=== PATIENT | female | born 1965 ===

== ENCOUNTER 2020-08-01 09:13 | Outpatient (REF) | payer OTHER, SELFPAY | END 2020-08-01 09:14 | disposition home or self-care (01) | LOC: HO.LAB 09:13 | PROVIDERS: Visit Provider Internal Medicine | DX: Z20.828 Contact with and (suspected) exposure to other viral communicable diseases (principal); M89.49 Other hypertrophic osteoarthropathy, multiple sites; M17.11 Unilateral primary osteoarthritis, right knee; M17.12 Unilateral primary osteoarthritis, left knee | CPT/HCPCS: 99212; C9803; U0003 ==

== ENCOUNTER 2020-08-21 07:47 | Outpatient (REF) | payer OTHER, SELFPAY | END 2020-08-21 07:48 | disposition home or self-care (01) | LOC: HO.LAB 07:47 | PROVIDERS: PCP Internal Medicine; Visit Provider Internal Medicine | DX: Z20.828 Contact with and (suspected) exposure to other viral communicable diseases (principal) | CPT/HCPCS: C9803; U0003 ==

== ENCOUNTER 2020-09-11 08:06 | Outpatient (REF) | payer OTHER, SELFPAY ==
--- NOTE | 2020-09-11 08:10 | MM_ITS ---
EXAMINATION: BONE DENSITOMETRY CLINICAL INDICATION: Age-related osteoporosis without current pathological fracture. COMPARISON: Baseline BD dated 04/20/2018. TECHNIQUE: Using a [employer] Software DXA System (software version: 13.1) manufactured by [employer], dual-energy x-ray absorptiometry was performed of the lumbar spine and left hip. The images are of good technical quality. Summary results are attached. FINDINGS: AP SPINE L1-L4: Current: BMD 0.804 g/cm2, Z-score -2.1, T-score -3.1, osteoporosis, 7.9% decrease from baseline (<5% change is not significant). Baseline: BMD 0.873 g/cm2. LEFT FEMUR, NECK: Current: BMD 0.665 g/cm2, Z-score -1.5, T-score -2.7, osteoporosis. Baseline: BMD 0.653 g/cm2. LEFT FEMUR, TOTAL: Current: BMD 0.793 g/cm2, Z-score -0.9, T-score -1.7, osteopenia, 0.6% decrease from baseline (<5% change is not significant). Baseline: BMD 0.798 g/cm2. IDENTIFIED RISK FACTORS: History of adult fracture. Rheumatoid arthritis. Osteoporosis. Secondary osteoporosis (early menopause). HISTORY OF FRACTURE: Elbow. Shoulder, trauma related. MEDICATIONS: Calcium supplement and/or multivitamin. MM/XR DEXA axial skeleton IMPRESSION: 1. DIAGNOSIS: Severe osteoporosis based on the lowest T-score value of -3.1 in the lumbar spine applying World Health Organization criteria. 2. 10-YEAR FRACTURE RISK PREDICTION, FRAX: Major osteoporotic fracture (clinical spine, forearm, hip or shoulder) 24.6%. Hip fracture 6.3%. 3. Treatment Recommendations: NOF guidelines recommend consideration for treatment in postmenopausal women and men age 50 and older presenting with the following: -A hip or vertebral (clinical or morphometric) fracture. -T-score less than or equal to -2.5 at the femoral neck or spine after appropriate evaluation to exclude secondary causes. -Low bone mass at the hip or spine and a 10-year fracture probability by FRAX of greater than or equal to 3% for hip fracture or greater than or equal to 20% for major osteoporotic fracture based on the [place] adapted WHO algorithm. 4. Other Recommendations: All treatment decisions require clinical judgment and consideration of individual patient factors, including patient preferences, comorbidities, previous drug use, risk factors not captured in the FRAX model (e.g. frailty, falls, vitamin D deficiency, increased bone turnover, interval significant decline in bone density) and possible under or overestimation of fracture risk by FRAX. Additional medical evaluation for secondary cause of low bone mineral density may be appropriate. FUTURE SCAN RECOMMENDATION: People with diagnosed cases of osteoporosis or at high risk for fracture should have regular bone mineral density tests. For patients eligible for Medicare, routine testing is allowed once every 2 years. The testing frequency can be increased to one year for patients who have rapidly progressing disease, those who are receiving or discontinuing medical therapy to restore bone mass, or have additional risk factors.
--- NOTE | 2020-09-11 08:10 | MM_ITS ---
EXAMINATION: MM SCREENING DIGITAL BREAST TOMOSYNTHESIS, BILATERAL CLINICAL INFORMATION: Screening. Asymptomatic. The lifetime risk of breast cancer based on the Tyrer-Cuzick Model is 6%. COMPARISON: Outside mammography: 11/12/2016, 11/23/2013 ([facility]) TECHNIQUE: Digital breast tomosynthesis is performed in both the craniocaudal and mediolateral oblique views along with computer-aided detection (CAD). Synthesized 2D images are generated from the tomosynthesis. FINDINGS: There are scattered areas of fibroglandular density (ACR BI-RADS breast composition Category b). Breast tissue composition borders on heterogeneously dense. The parenchymal pattern is similar to prior exams. There is no significant mass or developing density or architectural abnormality. No abnormal calcifications. Low right axillary tail nodes present on MLO view. The skin contours are smooth. MM/MM tomosynthesis screening BI IMPRESSION: No mammographic evidence of malignancy. ASSESSMENT: BI-RADS 2: Benign RECOMMENDATION: Routine annual mammography screening. This patient's information was entered into a reminder system with a target due date for their next mammogram.
== END 2020-09-11 08:07 | disposition home or self-care (01) ==
LOC: HO.MAMMO 08:06
PROVIDERS: PCP Internal Medicine; Visit Provider Internal Medicine
DX: Z12.31 Encounter for screening mammogram for malignant neoplasm of breast (principal); M81.0 Age-related osteoporosis without current pathological fracture
CPT/HCPCS: 77063; 77067; 77080

== ENCOUNTER 2021-02-19 08:16 | Outpatient (REF) | payer OTHER, SELFPAY | END 2021-02-19 08:17 | disposition home or self-care (01) | LOC: HO.HOSX 08:16 | PROVIDERS: Visit Provider Physician Assistant | DX: Z13.89 Encounter for screening for other disorder (principal) ==

== ENCOUNTER 2021-07-05 09:28 | Outpatient (REF) | payer OTHER, SELFPAY ==
[2021-07-05 11:35] LABS: Baso%MD 0.4 %; Eos%MD 2.8 %; Hematocrit 36.5 % (37-47); IG%MD 0.4 %; Lymph%MD 23.1 %; Mean Corpuscular HGB Conc 32.9 g/dl (31.0-35.0); Mean Corpuscular Hemoglobin 27.5 pg (27.0-33.0); Mean Corpuscular Volume 83.5 fL (80-98); Mean Platelet Volume 10.3 fL (9.4-12.3); Mono%MD 6.1 %; Neut%MD 67.2 %; Platelet Count 309 X10*3/uL (160-400); Red Blood Count 4.37 X10*6/uL (4.20-5.50); Red Cell Distribution Width 13.3 % (11.0-16.0); White Blood Count 7.5 X10*3/uL (4.8-10.8)
[2021-07-05 11:46] LABS: Alanine Aminotransferase 15 U/L (0-31); Albumin Level 4.4 g/dL (3.5-5.0); Alkaline Phosphatase 82 U/L (39-117); Anion Gap 10 (12-20); Aspartate Amino Transferase 15 U/L (5-31); Bilirubin Total 0.5 mg/dL (0.0-1.0); Blood Urea Nitrogen 15 mg/dL (9-16); Calcium 9.6 mg/dL (8.4-10.2); Carbon Dioxide 28 mmol/L (22-29); Chloride 105 mmol/L (96-108); Cholesterol 229 mg/dL; Estimated Glomerular Filt Rate > 60; Glucose Fasting 100 mg/dL (60-99); HDL Cholesterol 68 mg/dL; LDL Cholesterol Calculated 139 mg/dl; Potassium 4.2 mmol/L (3.3-5.1); Sodium 139 mmol/L (135-145); Total Protein 6.7 g/dL (6.5-8.0); Triglycerides 113 mg/dL
[2021-07-05 11:59] LABS: Estimated Average Glucose 126 mg/dL
[2021-07-05 12:02] LABS: Band Neutrophils Percent 1 % (3-5); Eosinophils Absolute Manual 0.2 X10*3/UL (0.0-0.8); Eosinophils Percent Manual 3 % (0-4); Lymphocytes Absolute Manual 1.1 X10*3/uL (0.6-4.8); Lymphocytes Percent Manual 14 % (20-40); Monocytes Absolute Manual 0.5 X10*3/uL (0.0-1.2); Monocytes Percent Manual 6 % (2-11); Neutrophils Absolute Manual 5.8 X10*3/uL (2.2-7.9); Neutrophils Percent Manual 76 % (45-73)
[2021-07-05 12:03] LABS: RBC Morphology NOTED
[2021-07-05 12:04] LABS: Acanthocytes 1+ (0-2) /OIF; Ovalocytes 1+ (5-14) /OIF; Platelet Estimate NORMAL (NORMAL); Platelet Morphology Comment NORMAL
[2021-07-05 12:22] LABS: Creatinine Urine 86.85 mg/dL; Microalbum/Creatinine Ratio Ur 28.7 ug/mg cr; TSH reflex Free T4 1.12 uIU/mL (0.32-4.0)
== END 2021-07-05 09:29 | disposition home or self-care (01) ==
LOC: HO.HMGCLDS 09:28
PROVIDERS: PCP Internal Medicine; Visit Provider Internal Medicine
DX: E78.5 Hyperlipidemia, unspecified (principal); I10 Essential (primary) hypertension; M81.0 Age-related osteoporosis without current pathological fracture; M54.2 Cervicalgia
CPT/HCPCS: 36415; 80053; 80061; 82043; 82306; 83036; 84443; 85007; 85027

== ENCOUNTER 2022-03-13 13:47 | Outpatient (REF) | payer OTHER, SELFPAY ==
--- NOTE | ~2022-03-13 | US_ITS ---
EXAMINATION: US VENOUS ULTRASOUND WITH DOPPLER LOWER EXTREMITY, RIGHT CLINICAL INFORMATION: Right lower extremity pain COMPARISON: None TECHNIQUE: Ultrasound of the deep veins is performed from the hip to the calf with compression sonography and color and pulse Doppler assessment. Spectral analysis with color-flow imaging is performed. FINDINGS: There is normal venous compression and respiratory variation and augmented flow. The visualized common femoral vein, superficial femoral vein, profunda femoral vein, popliteal vein, and the trifurcation region shows no evidence of deep venous thrombosis. There is no significant popliteal fossa cyst. The contralateral left femoral vein is normal. If the patient's symptoms persist, followup ultrasound in 5 days 7 days might be of value to exclude proximal propagation from a non-visualized calf vein. US/US venous duplex LE RT IMPRESSION: No DVT demonstrated in the right lower extremity.
== END 2022-03-13 13:48 | disposition home or self-care (01) ==
LOC: HO.HMGCX 13:47
PROVIDERS: Visit Provider Internal Medicine
DX: M79.604 Pain in right leg (principal)
CPT/HCPCS: 93971

== ENCOUNTER 2022-06-09 07:44 | Outpatient (REF) | payer OTHER, SELFPAY ==
--- NOTE | ~2022-06-09 | XR_ITS ---
EXAMINATION: XR ANKLE, RIGHT CLINICAL INFORMATION: M25.579 - Pain in unspecified ankle and joints of unspecified foot COMPARISON: None TECHNIQUE: AP, lateral, and mortise views of the right ankle. FINDINGS: The bones and soft tissues are normal. No fracture. Alignment is anatomic. Joint spaces are maintained. No joint effusion. XR/XR ankle RT min 3V IMPRESSION: Normal right ankle.
== END 2022-06-09 07:45 | disposition home or self-care (01) ==
LOC: HO.HOSX 07:44
PROVIDERS: Visit Provider Physician Assistant
DX: M25.571 Pain in right ankle and joints of right foot (principal); M79.604 Pain in right leg
CPT/HCPCS: 73610; 99202

== ENCOUNTER 2022-06-25 07:25 | Outpatient (REF) | payer OTHER, SELFPAY ==
--- NOTE | ~2022-06-25 | MR_ITS ---
EXAMINATION: MRI OF THE RIGHT LOWER EXTREMITY WITHOUT CONTRAST CLINICAL INFORMATION: Pain in right leg COMPARISON: None TECHNIQUE: MRI of the right lower leg performed without contrast high-field MRI scanner. Skin marker placed in the airway patient reports greatest discomfort. FINDINGS: Subcutaneous soft tissues: There is mild subcutaneous edema manifested by feathery-appearing fluid signal stranding abutting the anterior medial cortex of the middle to distal third portion of the tibia. Possible subtle edema in the underlying bone. No fracture line. Muscles Bone: Question subtle marrow edema deep to the endosteal bone along the anterior medial aspect of the mid to distal tibia. No fracture line. Neurovascular structures: Normal. MR/MR lower leg RT wo con IMPRESSION: Suspect mild stress reaction in the distal right tibia. No discrete fracture line.
== END 2022-06-25 07:26 | disposition home or self-care (01) ==
LOC: HO.MRI 07:25
PROVIDERS: Visit Provider Physician Assistant
DX: M79.604 Pain in right leg (principal)
CPT/HCPCS: 73718

== ENCOUNTER 2022-11-10 07:58 | Outpatient (REF) | payer OTHER, SELFPAY ==
[2022-11-10 11:57] LABS: MANUAL DIFF FLAG NO
[2022-11-10 12:11] LABS: Basophils Absolute Auto 0.1 X10*3/uL (0.0-0.2); Basophils Percent Auto 0.6 % (0-2); Eosinophils Absolute Auto 0.4 X10*3/uL (0.0-0.4); Eosinophils Percent Auto 4.3 % (0-4); Hematocrit 39.1 % (37.0-47.0); Hemoglobin 12.5 g/dl (12.0-16.0); Imm Gran Abs Auto 0.03 X10*3/uL (0.00-0.03); Imm Gran Pct Auto 0.4 % (0.0-0.4); Lymphocytes Absolute Auto 2.7 X10*3/uL (1.2-4.9); Lymphocytes Percent Auto 32.2 % (20-40); Mean Corpuscular Hemoglobin 26.9 pg (27.0-33.0); Mean Corpuscular Volume 84.3 fL (80.0-98.0); Mean Platelet Volume 10.2 fL (9.4-12.3); Monocytes Absolute Auto 0.5 X10*3/uL (0.1-1.2); Neutrophils Absolute Auto 4.8 x10*3/uL (2.0-8.3); Neutrophils Percent Auto 56.5 % (45-73); Platelet Count 305 X10*3/uL (160-400); Red Blood Count 4.64 X10*6/uL (4.20-5.50); Red Cell Distribution Width 13.4 % (11.0-16.0); White Blood Count 8.4 X10*3/uL (4.8-10.8)
[2022-11-10 12:28] LABS: Alanine Aminotransferase 14 U/L (0-31); Albumin Level 4.2 g/dL (3.5-5.0); Alkaline Phosphatase 62 U/L (39-117); Anion Gap 12 (12-20); Aspartate Amino Transferase 12 U/L (5-31); Bilirubin Total 0.3 mg/dL (0.0-1.0); Blood Urea Nitrogen 17 mg/dL (9-16); Calcium 8.9 mg/dL (8.4-10.2); Carbon Dioxide 26 mmol/L (22-29); Chloride 108 mmol/L (96-108); Estimated Glomerular Filt Rate > 60; Glucose Random 114 mg/dL (60-115); Potassium 3.8 mmol/L (3.3-5.1); Sodium 142 mmol/L (135-145); Total Protein 6.7 g/dL (6.5-8.0)
== END 2022-11-10 07:59 | disposition home or self-care (01) ==
LOC: HO.HMGCLDS 07:58
PROVIDERS: PCP Internal Medicine; Visit Provider Internal Medicine
DX: M79.604 Pain in right leg (principal)
CPT/HCPCS: 36415; 80053; 85025

== ENCOUNTER 2023-05-26 08:29 | Outpatient (REF) | payer OTHER, SELFPAY ==
--- NOTE | ~2023-05-26 | XR_ITS ---
EXAMINATION: XR KNEES AP STANDING, BILATERAL XR KNEE, 2 VIEWS, RIGHT CLINICAL INFORMATION: Right knee pain. COMPARISON: MRI dated 06/25/2022. Prior radiographs from 10/13/2019. TECHNIQUE: Standing AP view of both knees and lateral and sunrise views of the right knee. FINDINGS: LEFT KNEE: There is medial compartment joint space narrowing with small marginal osteophytes. This is more pronounced as compared to 2020. Small lateral compartment osteophytes. No fracture or malalignment. Soft tissues are unremarkable. RIGHT KNEE: Medial compartment joint space narrowing is again noted with small marginal osteophytes. Small marginal osteophytes are also present in the lateral and patellofemoral compartments. This appearance is slightly more pronounced as compared to 2020. No joint effusion. No osseous loose bodies. No fracture or malalignment. XR/XR knee RT 2V IMPRESSION: Slight progression of the osteoarthritis in both knees as compared to prior. Osteoarthritis remains relatively mild and more pronounced in the medial compartments bilaterally and in the right knee patellofemoral compartment.
--- NOTE | ~2023-05-26 | XR_ITS ---
EXAMINATION: XR KNEES AP STANDING, BILATERAL XR KNEE, 2 VIEWS, RIGHT CLINICAL INFORMATION: Right knee pain. COMPARISON: MRI dated 06/25/2022. Prior radiographs from 10/13/2019. TECHNIQUE: Standing AP view of both knees and lateral and sunrise views of the right knee. FINDINGS: LEFT KNEE: There is medial compartment joint space narrowing with small marginal osteophytes. This is more pronounced as compared to 2020. Small lateral compartment osteophytes. No fracture or malalignment. Soft tissues are unremarkable. RIGHT KNEE: Medial compartment joint space narrowing is again noted with small marginal osteophytes. Small marginal osteophytes are also present in the lateral and patellofemoral compartments. This appearance is slightly more pronounced as compared to 2020. No joint effusion. No osseous loose bodies. No fracture or malalignment. XR/XR knee standing BI IMPRESSION: Slight progression of the osteoarthritis in both knees as compared to prior. Osteoarthritis remains relatively mild and more pronounced in the medial compartments bilaterally and in the right knee patellofemoral compartment.
== END 2023-05-26 08:30 | disposition home or self-care (01) ==
LOC: HO.HOSX 08:29
PROVIDERS: Visit Provider Physician Assistant
DX: M17.11 Unilateral primary osteoarthritis, right knee (principal)
CPT/HCPCS: 20610; 73560; 73565; 99212; J1040

== ENCOUNTER 2023-05-26 10:32 | Outpatient (AMB) | payer SELFPAY ==
--- NOTE | 2023-05-26 10:49 | MHC.OFFVIS ---
Intake Vital Signs 05/26/23 10:50 Height 5 ft Weight 135 lb BMI 26.4 Intake Visit Reasons: OV- Right knee pain Intake Note: Donna is a 57 year old female who presents today for a follow up for her right knee pain. Patient reports having pain when over working her knee when walking on it all day. She states that her knee gets stiff the next day. Patient states taking Tylenol for arthritis and it gives her relief. Allergies SEASONAL Allergy (Intermediate, Uncoded 01/07/23 13:33) Itchy Eyes HPI OV- Right knee pain HPI Details 57-year-old female who presents in the office today for an evaluation of right knee pain. The patient reports having pain when over working the knee and when ambulating all day. She claims to have stiffness in the knee at night. She confirms edema in the right knee. She states she has been taking Tylenol for arthritis, with some relief. She reports her job is on her feet and the pain in her knee is causing her increased pain and difficult to work on. [facility], [facility] Medical History (Updated 02/25/23 @ 07:22 by Martir Mcmillan MD) Supraclavicular fossa fullness Anxiety Primary osteoarthritis of left knee Primary osteoarthritis of right knee Osteoporosis Asthma Hyperlipemia HTN (hypertension) Fibromyalgia Arthralgia Surgical History Hx of tubal ligation History of shoulder surgery Hx of appendectomy Family History Father CVD (cardiovascular disease) HTN (hypertension) Diabetes Mother HTN (hypertension) Diabetes Son No problems noted. Daughter No problems noted. 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 No ecchymosis, erythema, or joint effusion. No tenderness to palpation to the lateral joint line. Tenderness to palpation to the medial joint line. Full knee extension and flexion. Crepitus felt with ROM. NVI. Office Procedures Joint Injection/Drain Joint Injection/Drain Primary Site: right knee Prep: site was prepped using aseptic technique, ethochloride spray was applied and injection warnings given Injected: 80 mg of, DepoMedrol, with 8 mL of (2% plain lido ) and in the joint Approach Used: anterolateral Procedure: The patient tolerated the procedure well, but had some pain with the injection and there was some relief with the local anesthesia Coding 99121 - Large joint Procedure code (CPT) selection complete Results Reviewed Results Reviewed: 05/26/23 11:02 Lidocaine HCl 2 % MPF [Xylocaine 2 % MPF] 5 ml .ROUTE .STK-MED ONE methylPREDNISolone acetate [DEPO-MedroL] 80 mg .ROUTE .STK-MED ONE Assessment & Plan Assessment & Plan (1) Primary osteoarthritis of right knee: Code(s): M17.11 - Unilateral primary osteoarthritis, right knee Plan Ms. Abdalla is a 57-year-old female who presents in the office today for an evaluation of right knee pain. The patient reports having pain when over working the knee and when ambulating all day. She claims to have stiffness in the knee at night. She confirms edema in the right knee. She states she has been taking Tylenol for arthritis, with some relief. She reports her job is on her feet and the pain in her knee is causing her increased pain and difficult to work on. The patient was offered a cortisone injection in the right knee with 80 mg of DepoMedrol. The patient was explained the risk, benefits, and alternatives to receiving this injection. After receiving consent for the injection, the patient had the procedure done while in office today. The patient tolerated the procedure well with no complications. Follow up will be PRN, or sooner if needed. X-rays of the right knee which were obtained while in the office today and were reviewed by me, Liseth Eckert PA-C, revealed no evidence of acute fracture or dislocation. Osteoarthritis observed. Orders: Orders XR knee standing BI Today M25.569 - Pain in unspecified knee XR knee RT 2V Today M25.569 - Pain in unspecified knee Patient Instructions: Scribed for Liseth Eckert PA-C by Conchis Ward medical receptionist assistant, on 05/26/2023 at 10:41 am, EST. Coding Level of Care Code Est Pt Level 3 (68735) Diagnoses Primary osteoarthritis of right knee M17.11 CPT Codes Coding - 23397 Large joint: 50433 - Large joint ([id number])
[2023-05-26 10:50] VITALS: BMI 26.4
== END 2023-05-26 11:17 | disposition home or self-care (01) ==
PROVIDERS: PCP Internal Medicine; Visit Provider Physician Assistant
DX: M17.11 Unilateral primary osteoarthritis, right knee (principal)
CPT/HCPCS: 20610; 99213

== ENCOUNTER 2023-06-29 09:06 | Outpatient (AMB) | payer SELFPAY ==
[2023-06-29 10:35] VITALS: BP 122/78; PULSE 87; O2SAT 97; BMI 26.9
--- NOTE | 2023-06-29 10:35 | AM.OFFWIN_ITS ---
Intake Vital Signs 06/29/23 10:35 Height 5 ft Weight 138 lb BMI 26.9 BP 122/78 Blood Pressure Location Lt brachial Position Sitting Pulse 87 Pulse Source Pulse Oximeter Pulse Oximetry (%) 97 Oxygen Delivery Method Room Air Intake Visit Reasons: EP LT leg pain (lobby) Intake Note: patient is here today for LT leg pain Patient Tobacco Use Status: Never used Tobacco Allergies SEASONAL Allergy (Intermediate, Uncoded 06/29/23 11:03) Itchy Eyes Medication List - Last Reconciled 06/29/23 by Winston Carmona MD albuterol sulfate 90 mcg/actuation 2 puffs inhalation Q6H PRN amlodipine 5 mg PO DAILY denosumab (Prolia) 60 mg subcut [id number] duloxetine (Cymbalta) one cap in am, 2 caps in pm orally 2 times a day; fluticasone propion-salmeterol 113-14 mcg/actuation 1 inh inhalation BID fluticasone propionate 113 mcg/actuation 1 inh inhalation BID meloxicam 15 mg PO DAILY montelukast 10 mg PO DAILY omeprazole 40 mg PO DAILY simvastatin 20 mg PO DAILY Do you need a note to return to daycare/school/sports/work: No HPI EP LT leg pain (lobby) HPI Details 57-year-old female presents to the health system for a sick visit. Patient is reporting pain over the left leg for the past week. Does not recall any fall or injury. She reports that for the past few days she has been walking with a limp as there is pain in the left leg when she bears weight. [facility] Medical History Supraclavicular fossa fullness Anxiety Primary osteoarthritis of left knee Primary osteoarthritis of right knee Osteoporosis Asthma Hyperlipemia HTN (hypertension) Fibromyalgia Arthralgia Surgical History Hx of tubal ligation History of shoulder surgery Hx of appendectomy Family History Father CVD (cardiovascular disease) HTN (hypertension) Diabetes Mother HTN (hypertension) Diabetes Son No problems noted. Daughter No problems noted. 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 No visible bruising. Assessment & Plan Assessment & Plan (1) Left leg pain: Code(s): M79.605 - Pain in left leg Orders: Orders XR tibia fibula LT 2V Today S80.10XA - Contusion of unspecified lower leg, initial encounter Patient Instructions: X-ray images were personally reviewed by me. No fractures seen. Meloxicam called in. Coding Level of Care Code Est Pt Level 4 (50807) Diagnoses Left leg pain M79.605
== END 2023-06-29 11:29 | disposition home or self-care (01) ==
PROVIDERS: PCP Internal Medicine; Visit Provider Internal Medicine
DX: M79.605 Pain in left leg (principal)
CPT/HCPCS: 99214

== ENCOUNTER 2023-06-29 11:00 | Outpatient (REF) | payer OTHER, SELFPAY ==
--- NOTE | ~2023-06-29 | XR_ITS ---
EXAMINATION: XR TIBIA AND FIBULA, LEFT CLINICAL INFORMATION: Contusion. COMPARISON: Right lateral knee 05/26/2023. TECHNIQUE: AP and lateral views of the left tibia and fibula were obtained. FINDINGS: No significant soft tissue swelling. No radiopaque foreign body. No fracture. Minimal degenerative changes in the knee. XR/XR tibia fibula LT 2V IMPRESSION: No fracture.
== END 2023-06-29 11:01 | disposition home or self-care (01) ==
LOC: HO.HMGCX 11:00
PROVIDERS: PCP Internal Medicine; Visit Provider Internal Medicine
DX: S80.12XA Contusion of left lower leg, initial encounter (principal)
CPT/HCPCS: 73590

== ENCOUNTER 2023-10-09 11:31 | Outpatient (AMB) | payer OTHER, SELFPAY ==
--- NOTE | 2023-10-09 11:38 | MHC.OFFVIS ---
Intake Vital Signs 10/09/23 11:39 Height 5 ft Weight 138 lb BMI 26.9 Intake Visit Reasons: OV - right knee OA, last inj 05/26/23 Intake Note: Donna is a 58 year old female who presents today for a follow up of her right knee OA. Last injection was done 05/26/23. Patient reports that this injection was helpful. She is interested in exploring other treatment options but also interested in repeat injection today. Allergies SEASONAL Allergy (Intermediate, Uncoded 06/29/23 11:03) Itchy Eyes HPI OV - right knee OA, last inj 05/26/23 HPI Details Donna is a 58 year old woman who returns to discuss her right knee OA. She was last seen, and injected, on 05/26/23, with good relief. She would like to discuss alternative treatment options, but she is open to a repeat injection today. [facility] Medical History Supraclavicular fossa fullness Anxiety Primary osteoarthritis of left knee Primary osteoarthritis of right knee Osteoporosis Asthma Hyperlipemia HTN (hypertension) Fibromyalgia Arthralgia Surgical History Hx of tubal ligation History of shoulder surgery Hx of appendectomy Family History Father CVD (cardiovascular disease) HTN (hypertension) Diabetes Mother HTN (hypertension) Diabetes Son No problems noted. Daughter No problems noted. 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 Cognitive needs: No Hearing needs: No Vision needs: Yes Review of Systems Const All systems reviewed & are unremarkable except as noted in HPI and below Physical Exam Vital Signs: BMI result Body Mass Index 26.9 Const General: no acute distress, alert and awake Orientation/consciousness: patient oriented x3 HEENT Head: Yes normocephalic and Yes atraumatic Eyes EOM: EOMs intact bilaterally Resp Effort & Inspection: normal respiratory effort and able to speak in complete sentences Cardio Jugular venous distension: no JVD Skin General skin exam: turgor normal Rashes: no rashes Neuro General: patient oriented x3 Extrem Other: mild medial compartment TTP Walking normally with no effusion Psych Appearance: grossly normal Affect: normal affect Attitude: cooperative Results Reviewed Results Reviewed: I personally reviewed relevant radiographs. Moderate medial compartment OA Assessment & Plan Assessment & Plan (1) Primary osteoarthritis of right knee: Code(s): M17.11 - Unilateral primary osteoarthritis, right knee Plan: Doing well May f/u for injection if pain returns No intervention warranted today Plan Prepared for Tommy Alexandra MD by Dio Palafox, medical assistant dermatology, on 10/09/23 at 11:44 AM, EST. Coding Level of Care Code Est Pt Level 3 (00205) Diagnoses Primary osteoarthritis of right knee M17.11
[2023-10-09 11:39] VITALS: BMI 26.9
== END 2023-10-09 11:48 | disposition home or self-care (01) ==
PROVIDERS: PCP Internal Medicine; Visit Provider Orthopaedic Surgery
DX: M17.11 Unilateral primary osteoarthritis, right knee (principal)
CPT/HCPCS: 99213

== ENCOUNTER → 2023-10-09 11:31 | Outpatient (BNVA) | payer OTHER, SELFPAY | PROVIDERS: PCP Internal Medicine; Visit Provider Orthopaedic Surgery | DX: M17.11 Unilateral primary osteoarthritis, right knee (principal) | CPT/HCPCS: 99212 ==

== ENCOUNTER → 2024-06-17 12:33 | Outpatient (BNVA) | payer OTHER, SELFPAY | PROVIDERS: PCP Internal Medicine; Visit Provider Internal Medicine ==

== ENCOUNTER 2024-11-29 09:09 | Outpatient (REF) | payer OTHER, SELFPAY ==
[2024-11-29 11:16] LABS: Adenovirus PCR Not Detected (Not Detect.); Bordetella parapertussis PCR Not Detected (Not Detect.); Bordetella pertussis PCR Not Detected (Not Detect.); Chlamydia pneumoniae PCR Not Detected (Not Detect.); Coronavirus 229E PCR Not Detected (Not Detect.); Coronavirus HKU1 PCR Not Detected (Not Detect.); Coronavirus NL63 PCR Not Detected (Not Detect.); Coronavirus OC43 PCR Not Detected (Not Detect.); Human metapneumovirus PCR Not Detected (Not Detect.); Influenza A PCR Not Detected (Not Detect.); Influenza B PCR Not Detected (Not Detect.); Mycoplasma pneumoniae PCR Not Detected (Not Detect.); Parainfluenza 1 PCR Not Detected (Not Detect.); Parainfluenza 2 PCR Not Detected (Not Detect.); Parainfluenza 3 PCR Not Detected (Not Detect.); Parainfluenza 4 PCR Not Detected (Not Detect.); RSV PCR Not Detected (Not Detect.); Rhino/Enterovirus PCR Not Detected (Not Detect.)
[2024-11-29 13:17] LABS: SARS-CoV-2 PCR Not Detected (Not Detect.)
== END 2024-11-29 09:10 | disposition home or self-care (01) ==
LOC: HO.LAB 09:09
PROVIDERS: Physician Assistant; PCP Internal Medicine
DX: J06.9 Acute upper respiratory infection, unspecified (principal); J01.90 Acute sinusitis, unspecified; B97.89 Other viral agents as the cause of diseases classified elsewhere
CPT/HCPCS: 87633; 99212

== ENCOUNTER 2024-11-29 09:09 | Outpatient (AMB) | payer OTHER, SELFPAY ==
[2024-11-29 09:12] VITALS: BP 130/82; PULSE 73; TEMP 36.5; O2SAT 97; BMI 26.8
--- NOTE | 2024-11-29 09:12 | AM.OFFWIN_ITS ---
Intake Vital Signs 11/29/24 09:12 Height 5 ft Weight 137 lb BMI 26.8 BP 130/82 Blood Pressure Location Rt brachial Position Sitting Pulse 73 Pulse Source Pulse Oximeter Temp 97.7 F Temp Source Oral Pulse Oximetry (%) 97 Oxygen Delivery Method Room Air Intake Visit Reasons: EP Sinus congestion Intake Note: Pt presents to the office today for c/o sinus congestion,sinus pressure,headache, and runny nose x1 week. Patient Tobacco Use Status: Never used Tobacco Allergies SEASONAL Allergy (Intermediate, Uncoded 11/29/24 09:15) Itchy Eyes HPI HPI Comments History of Present Illness Details History - The patient is a 59-year-old female pr esenting with ear pain, headaches and sinus pain x 1week. - The pain is described as an intermitte nt shooting sensation, not constant or persistent. - Denies fever, respiratory, or gastroin testinal symptoms. - Discussed familial patterns of similar symptoms, suggesting a familial trait. - The patient has used prednisone in the past for similar symptoms. - Taking allergy pill daily with no reli ef Physical Exam General: Cooperative, healthy appearing, comfortable and no acute distress Orientation/consciousness: Patient oriented x3 Limitations: No limitations Head: Normal to inspection Ears: Hearing grossly normal bilaterally, external ears normal and TM's with fluid bilat Nose: Normal external nose present, Normal nares present and No nasal discharge present Face and sinus: Normal facial exam and Yes sinuses nontender Mouth: Normal oral and palatal mucosa present and moist mucous membranes Throat: Yes tonsils normal, Yes uvula midline. Posterior oropharynx erythema Eyes: Appearance normal, both eyes and all related structures Neck: Normal visual inspection Respiratory: Clear to auscultation bilaterally. Normal respiratory effort, able to speak in complete sentences, no respiratory distress, not tachypneic, no tripod positioning and no use of accessory muscles Cardiovascular: Regular rate and rhythm. Normal S1 and S2 Skin: No rashes or lesions noted Neuro: Patient oriented x3 Extremities: Normal to inspection and Yes no clubbing, cyanosis or edema PFSH Medical History Supraclavicular fossa fullness Anxiety Primary osteoarthritis of left knee Primary osteoarthritis of right knee Osteoporosis Asthma Hyperlipemia HTN (hypertension) Fibromyalgia Arthralgia Surgical History Hx of tubal ligation History of shoulder surgery Hx of appendectomy Family History Father CVD (cardiovascular disease) HTN (hypertension) Diabetes Mother HTN (hypertension) Diabetes Son No problems noted. Daughter No problems noted. 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 For the sinus and ear pain, I have prescribed oral prednisone, 20 mg daily in the morning to avoid sleep interference and enhance recovery. An additional course of Flonase has been advised to alleviate pressure and promote fluid drainage. Confirmed with the patient the absence of work needs, indicating symptom-managed status. Viral origin was discussed, with supportive care planned due to the lack of fever or additional infection symptoms. We will monitor for non-improving symptoms via portal follow-up, recognizing any severe escalation warranting urgent reassessment. Patient was informed and verbally consented to the use of an ambient scribe for clinic note documentation during this visit Orders: Orders Resp Pathogen Panel - [facility] Today J06.9 - Acute upper respiratory infection, unspecified Medications: New prednisone 20 mg PO QAM 5 tabs 0RF Coding Level of Care Code Est Pt Level 3 (18894) Diagnoses Acute viral sinusitis J01.90; B97.89
--- OUTSIDE RECORDS SUMMARY | 2024-11-29 09:51 | XMS_ITS | Clinical Summary ---
Author Organization [facility] Address [address] [address] Care Team Providers Care Pigment Pumper Name Role Phone Unavailable Primary Care Provider Unavailabl e Source Comments PLEASE NOTE, if this patient is a minor, it may be UNLAWFUL to discuss sensitive information that is contained in these records (such as FAMILY PLANNING, MENTAL HEALTH or SUBSTANCE ABUSE) with the minor patient's parent or other person without the patient's specific authorization.[facility] Social History Tobacco Use Types Packs/Day Years Used Date Smoking Tobacco: Never Assessed Social Connections Answer Date Recorded Connectedness 0 06/02/2024 Financial Resource Strain Answer Date R ecorded Financial Resource Strain 0 2020 Stress Answer Date Recorded Stress 0 08/22/2021 Physical Activity Answer Date Recorded Physical Activity 0 08/22/2021 Food Insecurity Answer Date Recorded Food 0 06/09/2024 Transportation Needs Answer Date Record ed Transportation 0 08/22/2021 Housing Stability Answer Date Recorded Housing 0 08/22/2021 Safety and Environment Answer Date Rachid rded Safety 0 08/22/2021 Utilities Answer Date Recorded Utilities 0 08/22/2021 Employment Answer Date Recorded Stress 0 06/02/2024 Comments Unknown Sex and Gender Information Value Date Recorded Sex Assigned at Not on file Legal Sex Female 6:36 AM PDT Gender Identity Not on file Sexual Orientation Not on file Plan of Treatment Not on file Insurance [place] D[place] [facility] [place] [place] [id number]
--- OUTSIDE RECORDS SUMMARY | 2024-11-29 09:51 | XMS_ITS ---
Author Name [facility] Organization Unknown Care Team Organization Name Specialty Phone Email Start Date End Da [facility]
== END 2024-11-29 09:27 | disposition home or self-care (01) ==
PROVIDERS: PCP Internal Medicine; Visit Provider Physician Assistant
DX: J01.90 Acute sinusitis, unspecified (principal); B97.89 Other viral agents as the cause of diseases classified elsewhere

== ENCOUNTER 2024-12-07 12:05 | Outpatient (REF) | payer OTHER, SELFPAY ==
--- NOTE | ~2024-12-07 | XR_ITS ---
EXAMINATION: XR SHOULDER 2 OR MORE VIEWS LEFT HISTORY: M25.512 - Pain in left shoulder COMPARISON: There are no prior studies available for comparison. FINDINGS: Three views of the left shoulder are submitted. The bones are osteopenic. There is no fracture or dislocation. There is moderate degenerative change of the glenohumeral joint with inferior osteophyte formation. The humeral head appears high riding suggestive of rotator cuff arthropathy. There are probable postsurgical changes involving the distal clavicle. The soft tissues are unremarkable. XR/XR shoulder LT min 2V IMPRESSION: Moderate degenerative changes of the glenohumeral joint with a high riding humeral head, suggestive of rotator cuff arthropathy. Electronically signed by: Ajit Chavez MD 12/08/2024 07:23 AM EDT
--- NOTE | ~2024-12-07 | XR_ITS ---
EXAMINATION: XR KNEES ANTEROPOSTERIOR STANDING BILATERAL HISTORY: M17.12 - Unilateral primary osteoarthritis, left knee COMPARISON: Comparison is made with the prior examination dated 05/26/2023. FINDINGS: Four views of the bilateral knees including standing AP views are submitted. Osseous mineralization is normal. There is no fracture or dislocation. There is moderate osteoarthritis of the medial and patellofemoral compartments of both knees, with joint space narrowing and osteophyte formation. The soft tissues are unremarkable. There is no joint effusion. XR/XR knee standing BI IMPRESSION: Moderate osteoarthritis of the medial and patellofemoral compartments of both knees. Electronically signed by: Ajit Chavez MD 12/08/2024 07:41 AM EDT
== END 2024-12-07 12:06 | disposition home or self-care (01) ==
LOC: HO.HMGCX 12:05
PROVIDERS: PCP Internal Medicine; Visit Provider Internal Medicine
DX: M25.512 Pain in left shoulder (principal); E78.5 Hyperlipidemia, unspecified; M81.0 Age-related osteoporosis without current pathological fracture; M25.50 Pain in unspecified joint; M79.7 Fibromyalgia; I10 Essential (primary) hypertension; M17.0 Bilateral primary osteoarthritis of knee
CPT/HCPCS: 73030; 73565; 96127; 99212

== ENCOUNTER 2024-12-07 12:05 | Outpatient (AMB) | payer OTHER, SELFPAY ==
--- NOTE | 2024-12-07 12:20 | A.OFFPC_ITS ---
Vital Signs 12/07/24 12:22 Height 5 ft Weight 130 lb BMI 25.4 BP 126/82 Blood Pressure Location Lt brachial Position Sitting Respiration 18 Pulse 86 Pulse Source Pulse Oximeter Temp 98.3 F Temp Source Oral Pulse Oximetry (%) 98 Oxygen Delivery Method Room Air Intake Visit Reasons: Medicine Review f/u Intake Note: Pt is here today for a follow up visit. Allergies SEASONAL Allergy (Intermediate, Uncoded 12/07/24 12:29) Itchy Eyes Medication List - Last Reconciled 12/07/24 by Judith Mcfadden MD albuterol sulfate 90 mcg/actuation 2 puffs inhalation Q6H PRN fluticasone propion-salmeterol 113-14 mcg/actuation 1 inh inhalation BID fluticasone propionate 113 mcg/actuation 1 inh inhalation BID omeprazole 40 mg PO DAILY Tobacco use date assessed: 12/07/24 Dental Screening Dental Screen Date: 12/07/24 Did you have a dental visit in the last 12 months?: Yes Did you have a dental problem in the last 6 months where you did not have access to dental care?: No Was dental information given to patient?: Patient has dentist HPI Medicine Review f/u HPI Details Pt presents for f/u. She has not been taking her medications for 2 years because she lost her insurance after she had from her alcoholic . She reports worsening fibromyalgia pain and muscle stiffness insomnia and worsening pain in the left shoulder and right knee. Patient used to take gabapentin for fibromyalgia but noticed difficulty with memory. Patient denies depression or suicide ideation. Her daughter with her family moved in to live with her. [facility] Medical History Arthralgia Supraclavicular fossa fullness Anxiety Primary osteoarthritis of left knee Primary osteoarthritis of right knee Osteoporosis Asthma Hyperlipemia HTN (hypertension) Fibromyalgia Surgical History Hx of tubal ligation History of shoulder surgery Hx of appendectomy Family History Father CVD (cardiovascular disease) HTN (hypertension) Diabetes Mother HTN (hypertension) Diabetes Son No problems noted. Daughter No problems noted. 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 1. Little interest or pleasure in doing things: not at all 2. Feeling down, depressed, or hopeless: several days 3. Trouble falling or staying asleep, or sleeping too much: nearly every day 4. Feeling tired or having little energy: nearly every day 5. Poor appetite or overeating: several days 6. Feeling bad about yourself - or that you are a failure or have let yourself or your family down: several days 7. Trouble concentrating on things, such as reading the newspaper or watching television: not at all 8. Moving or speaking so slowly that other people could have noticed. Or the opposite - being so fidgety or restless that you have been moving around a lot more than usual: not at all 9. Thoughts that you would be better off or of hurting yourself in some way: not at all Total score: 9 Depression Screening Interpretation: Negative Depression Screening Done: Yes [id number] - PHQ-9 Billing: Yes Source: Developed by Drs. Ajit Yung, Yanique Caballero, Sandeep Mak and colleagues, with an educational hardeep from [employer]. Thrive Questionnaire Date Thrive assessed: 11/14/24 I am a: Patient What is your living situation today?: I have a steady place to live Within the past 12 months, did the food you bought not last and you didn't have the money to get more?: I choose not to answer this question Within the past 12 months, did you worry whether your food would run out before you got money to buy more?: Never true Do you have trouble paying for medicines?: No Do you have trouble getting transportation to medical appointments?: No Do you have trouble paying your heating and electricity bill?: Yes Do you have trouble taking care of your child, family member or friend?: No Do you have trouble with day-to-day activities such as bathing, preparing meals, shopping, managing finances, etc.?: No Are you currently unemployed and looking for a job?: No Are you interested in more education?: No Please select the resources that you would like help with: None Currently or been in a relationship where the following occur: No concerns reported THRIVE Score: 1 AUDIT C Alcohol Use Questionnaire (AUDIT-C) 1. How often do you have a drink containing alcohol?: Never 3. How often do you have six or more drinks on one occasion?: Never Total Score: 0 FRED-7 AMB Questionnaire FRED-7 Date FRED - 7 assessed: 08/19/21 Source: Developed by Drs. Ajit Yung, Yanique Caballero, Sandeep Mak and colleagues, with an educational hardeep from [employer]. Review of Systems Const All systems reviewed & are unremarkable except as noted in HPI and below Eyes Reports no additional complaints ENT Reports no additional complaints Card Reports no additional complaints Resp Reports no additional complaints GI Reports no additional complaints Reports no additional complaints Physical exam (Primary Care) Vital Signs: Last Vital Signs Temp 98.3 F 12/07/24 12:22 Pulse 86 12/07/24 12:22 Resp 18 12/07/24 12:22 BP 126/82 12/07/24 12:22 Pulse Ox 98 12/07/24 12:22 Oxygen Delivery Method Room Air 12/07/24 12:22 BMI result Body Mass Index 25.4 Tobacco/Smoking Status: Tobacco use Status Tobacco use date assessed 12/07/24 12/07/24 12:32 Patient Tobacco Use Status Never used Tobacco 12/07/24 12:32 e-Cigarette/Vaping Use Never Used 12/07/24 12:32 PHQ-9: PHQ-9 Score PHQ-9: Total score 9 12/07/24 12:32 Depression Screening Interpretation: Negative Thrive Assessment: Date of Thrive Assessment Date Thrive assessed 11/14/24 12/07/24 12:20 Currently or been in a relationship where the following occur: No concerns reported Const General: no acute distress HENMT Head: Yes normal to inspection Eyes General: appearance normal, both eyes and all related structures Neck Neck: Yes no lymphadenopathy and Yes supple Resp Effort & Inspection: normal respiratory effort Auscultation: clear to auscultation bilaterally Cardio Rhythm: regular rhythm Heart sounds: S1 normal heart sound present and S2 normal heart sound present GI Inspection: Yes normal to inspection Extrem Other: There is significantly decreased range of motion of left shoulder, there is crepitus and slightly decreased range of motion of both knees, no joint swelling erythema warmth Coding Level of Care Code Est Pt Level 4 (43212) Diagnoses Shoulder pain, left M25.512 Hyperlipemia E78.5 Primary osteoarthritis of right knee M17.11 Osteoporosis M81.0 Arthralgia M25.50 Fibromyalgia M79.7 Additional Codes PHQ-9 - 21180 - PHQ-9 Billing: Yes ([id number]) Assessment & Plan Assessment & Plan (1) Shoulder pain, left: Comment: SURGERY 2020 [facility] Code(s): M25.512 - Pain in left shoulder Category: Medical Plan: Obtain x-ray and referred to physical therapy (2) Hyperlipemia: Code(s): E78.5 - Hyperlipidemia, unspecified Category: Medical Plan: Return for fasting blood work (3) Primary osteoarthritis of right knee: Code(s): M17.11 - Unilateral primary osteoarthritis, right knee Category: Medical Plan: Obtain x-rays of both knees (4) Osteoporosis: Comment: DEXA 10/2020 SD -3.1 L spine, started Prolia 12/2020 until 2022, lost insurance Code(s): M81.0 - Age-related osteoporosis without current pathological fracture Category: Medical Plan: check DEXA (5) Arthralgia: Code(s): M25.50 - Pain in unspecified joint Category: Medical Plan: Check arthritis panel (6) Fibromyalgia: Code(s): M79.7 - Fibromyalgia Category: Medical Plan: Stress management counseling discussed with the patient. Duloxetine 20 mg daily will be started. Patient will follow-up in 2 months for physical Orders: Orders Comprehensive [place]. Panel Fast Today E78.5 - Hyperlipidemia, unspecified, I10 - Essential (primary) hypertension, M25.512 - Pain in left shoulder, R73.9 - Hyperglycemia, unspecified Lipid Panel Today E78.5 - Hyperlipidemia, unspecified, I10 - Essential (primary) hypertension, M25.512 - Pain in left shoulder, R73.9 - Hyperglycemia, unspecified Complete Blood Count Auto Diff Today E78.5 - Hyperlipidemia, unspecified, I10 - Essential (primary) hypertension, M25.512 - Pain in left shoulder, R73.9 - Hyperglycemia, unspecified XR shoulder LT min 2V Today E78.5 - Hyperlipidemia, unspecified, I10 - Essential (primary) hypertension, M25.512 - Pain in left shoulder, R73.9 - Hyperglycemia, unspecified XR knee standing BI Today M17.11 - Unilateral primary osteoarthritis, right knee, M17.12 - Unilateral primary osteoarthritis, left knee XR DEXA axial skeleton Today M81.0 - Age-related osteoporosis without current pathological fracture Rheumatoid Factor Today M25.50 - Pain in unspecified joint TSH reflex Free T4 Today E78.5 - Hyperlipidemia, unspecified, I10 - Essential (primary) hypertension, M25.512 - Pain in left shoulder, R73.9 - Hyperglycemia, unspecified Vitamin D 25-OH Total Today E78.5 - Hyperlipidemia, unspecified, I10 - Essential (primary) hypertension, M25.512 - Pain in left shoulder, R73.9 - Hyperglycemia, unspecified PT Evaluation and Treatment Today M25.512 - Pain in left shoulder Cyclic Citrullinated Peptide Today M25.50 - Pain in unspecified joint [place]NA Reflex Titer and Pattern Today M25.50 - Pain in unspecified joint Medications: New duloxetine (Cymbalta) 20 mg PO BID 90 caps 3RF duloxetine (Cymbalta) 20 mg PO DAILY 90 caps 3RF Discontinued fluticasone propion-salmeterol 113-14 mcg/actuation Discontinued Reason: Doctor's Order 1 inh inhalation BID 3 ea 0RF
[2024-12-07 12:22] VITALS: BP 126/82; PULSE 86; RESP 18; TEMP 36.8; O2SAT 98; BMI 25.4
--- OUTSIDE RECORDS SUMMARY | 2024-12-07 14:31 | XMS_ITS | Clinical Summary ---
Author Organization [facility] Address [address] [address] Care Team Providers Care Machine Specialist Name Role Phone Unavailable Primary Care Provider [...] Plan of Treatment Not on file Insurance [place] MEDICA[place] DENTAL [facility] [place] [id number]
== END 2024-12-07 13:09 | disposition home or self-care (01) ==
LOC: HO.HMCC 12:06
PROVIDERS: PCP Internal Medicine; Visit Provider Internal Medicine
DX: M25.512 Pain in left shoulder (principal); E78.5 Hyperlipidemia, unspecified; M17.11 Unilateral primary osteoarthritis, right knee; M81.0 Age-related osteoporosis without current pathological fracture; M25.50 Pain in unspecified joint; M79.7 Fibromyalgia

== ENCOUNTER → 2024-12-07 13:20 | Outpatient (BNV) | payer OTHER, SELFPAY | PROVIDERS: PCP Internal Medicine; Visit Provider Radiology Diagnostic Radiology | DX: M25.512 Pain in left shoulder (principal); M17.12 Unilateral primary osteoarthritis, left knee | CPT/HCPCS: 73030; 73565 ==

== ENCOUNTER 2024-12-10 08:16 | Outpatient (REF) | payer OTHER, SELFPAY ==
[2024-12-10 11:40] LABS: MANUAL DIFF FLAG NO
[2024-12-10 11:51] LABS: Basophils Absolute Auto 0.1 X10*3/uL (0.0-0.2); Basophils Percent Auto 0.8 % (0-2); Eosinophils Absolute Auto 0.6 X10*3/uL (0.0-0.4); Eosinophils Percent Auto 8.8 % (0-4); Hematocrit 39.3 % (37.0-47.0); Hemoglobin 12.6 g/dl (12.0-16.0); Imm Gran Abs Auto 0.03 X10*3/uL (0.00-0.03); Imm Gran Pct Auto 0.5 % (0.0-0.4); Lymphocytes Percent Auto 32.1 % (20-40); Mean Corpuscular HGB Conc 32.1 g/dl (31.0-35.0); Mean Corpuscular Hemoglobin 26.7 pg (27.0-33.0); Mean Corpuscular Volume 83.3 fL (80.0-98.0); Mean Platelet Volume 10.2 fL (9.4-12.3); Monocytes Absolute Auto 0.4 X10*3/uL (0.1-1.2); Monocytes Percent Auto 6.2 % (2-11); Neutrophils Absolute Auto 3.2 x10*3/uL (2.0-8.3); Neutrophils Percent Auto 51.6 % (45-73); Platelet Count 296 X10*3/uL (160-400); Red Blood Count 4.72 X10*6/uL (4.20-5.50); Red Cell Distribution Width 13.5 % (11.0-16.0); White Blood Count 6.3 X10*3/uL (4.8-10.8)
[2024-12-10 12:11] LABS: Rheumatoid Factor < 13.0 IU/mL (<15.0)
[2024-12-10 12:15] LABS: Alanine Aminotransferase 11 U/L (0-31); Albumin Level 4.3 g/dL (3.5-5.0); Alkaline Phosphatase 73 U/L (39-117); Anion Gap 11 (12-20); Aspartate Amino Transferase 13 U/L (5-31); Bilirubin Total 0.4 mg/dL (0.0-1.0); Blood Urea Nitrogen 16 mg/dL (9-16); Calcium 9.4 mg/dL (8.4-10.2); Carbon Dioxide 26 mmol/L (22-29); Chloride 109 mmol/L (96-108); Cholesterol 301 mg/dL (<200); Estimated Glomerular Filt Rate > 60; Glucose Fasting 119 mg/dL (60-99); HDL Cholesterol 64 mg/dL (>40); LDL Cholesterol Calculated 215 mg/dL (<100); Potassium 4.6 mmol/L (3.3-5.1); Sodium 141 mmol/L (135-145); Triglycerides 114 mg/dL (<150)
[2024-12-10 12:34] LABS: TSH reflex Free T4 0.74 uIU/mL (0.32-4.0); Vitamin D 25-OH Total 15.6 ng/mL (>30)
[2024-12-13 10:13] LABS: Anti Nuclear Antibody Screen NEGATIVE (NEGATIVE)
[2024-12-15 06:33] LABS: Cyclic Citrullinated Peptide <16 UNITS
== END 2024-12-10 08:17 | disposition home or self-care (01) ==
LOC: HO.HMGCLDS 08:16
PROVIDERS: PCP Internal Medicine; Visit Provider Internal Medicine
DX: M25.50 Pain in unspecified joint (principal); I10 Essential (primary) hypertension; R73.9 Hyperglycemia, unspecified; E78.5 Hyperlipidemia, unspecified; M25.512 Pain in left shoulder
CPT/HCPCS: 36415; 80053; 80061; 82306; 84443; 85025; 86038; 86200; 86431

== ENCOUNTER 2025-01-02 08:54 | Outpatient (AMB) | payer OTHER, SELFPAY ==
--- NOTE | 2025-01-02 08:56 | MHC.OFFWIV ---
Intake Vital Signs 01/02/25 08:58 Weight 129 lb BP 126/80 Blood Pressure Location Rt brachial Position Sitting Pulse 74 Pulse Source Pulse Oximeter Pulse Oximetry (%) 94 Oxygen Delivery Method Room Air Intake Visit Reasons: EP-rt knee pain Intake Note: Patient here for right knee pain that has been present for 1 week. Patient Tobacco Use Status: Never used Tobacco Allergies SEASONAL Allergy (Intermediate, Uncoded 01/02/25 08:58) Itchy Eyes Do you need a note to return to daycare/school/sports/work: No HPI HPI Comments History of Present Illness Details 59 y/o Female patient who presents to the walk in clinic with c/o Right Knee Pain x 1 week. She does have H/o B/L Knees OA medial/Patello-femoral Joint Compartments (Recent Xray Knees 11/2024). She has been referred for PT by her PCP. She has been Using Ibuprofen OTC with minimal relief. Pt asking to be referred to Orthopedics. [facility] Medical History Arthralgia Supraclavicular fossa fullness Anxiety Primary osteoarthritis of left knee Primary osteoarthritis of right knee Osteoporosis Asthma Hyperlipemia HTN (hypertension) Fibromyalgia Surgical History Hx of tubal ligation History of shoulder surgery Hx of appendectomy Family History Father CVD (cardiovascular disease) HTN (hypertension) Diabetes Mother HTN (hypertension) Diabetes Son No problems noted. Daughter No problems noted. 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 Cognitive needs: No Hearing needs: No Vision needs: Yes Review of Systems Const All systems reviewed & are unremarkable except as noted in HPI and below Physical Exam Vital Signs: Last Vital Signs Pulse 74 01/02/25 08:58 BP 126/80 01/02/25 08:58 Pulse Ox 94 01/02/25 08:58 Oxygen Delivery Method Room Air 01/02/25 08:58 Const General: no acute distress Orientation/consciousness: patient oriented x3 Limitations: no limitations Neuro General: patient oriented x3, gait normal and moves all extremities Extrem Right lower extremity: normal to inspection, full ROM and knee Details: tenderness Location: of the medial joint line and of the lateral joint line and normal ROM; no swelling, no ecchymosis, no crepitus and no deformity Left lower extremity: normal to inspection and full ROM Psych Speech and movement: Normal speech and movement present Assessment & Plan Assessment & Plan (1) Primary osteoarthritis of right knee: Code(s): M17.11 - Unilateral primary osteoarthritis, right knee Plan: Provided Knee Brace. Patient to call PT and schedule sessions. Will Refer to Ortho as requested. Ice/Hot NSAIDs for pain relief. Coding Level of Care Code Est Pt Level 4 (11035) Diagnoses Primary osteoarthritis of right knee M17.11 Time Spent (min) 20
[2025-01-02 08:58] VITALS: BP 126/80; PULSE 74; O2SAT 94
--- OUTSIDE RECORDS SUMMARY | 2025-01-02 09:06 | XMS_ITS | Clinical Summary ---
Author Organization [facility] Address [address] [address] Care Team Providers Care Stock Pitcher Name Role Phone Unavailable Primary Care Provider [...] Plan of Treatment Not on file Insurance [place] MED[place] DENT[place] [facility] [place] [id number]
== END 2025-01-02 09:10 | disposition home or self-care (01) ==
PROVIDERS: PCP Internal Medicine; Visit Provider Nurse Practitioner Family
DX: M17.11 Unilateral primary osteoarthritis, right knee (principal)

== ENCOUNTER → 2025-01-02 08:54 | Outpatient (BNVA) | payer OTHER, SELFPAY | PROVIDERS: PCP Internal Medicine; Visit Provider Nurse Practitioner Family | DX: M17.11 Unilateral primary osteoarthritis, right knee (principal) | CPT/HCPCS: 99212 ==

== ENCOUNTER 2025-01-17 10:19 | Outpatient (REF) | payer OTHER, SELFPAY ==
--- NOTE | ~2025-01-17 | MM_ITS ---
EXAMINATION: DXA BONE DENSITY AXIAL HISTORY: M81.0 - Age-related osteoporosis without current pathological fracture TECHNIQUE: [employer] [place] Dual energy absorptiometry (DEXA) of the lumbar spine, total left hip, and femoral neck was performed. COMPARISON: Comparison is made with the prior examination dated 09/11/2020. FINDINGS: The bone mineral density of the lumbar spine is 0.898 with a T-score of -2.3, and a Z-score of -0.8. This is indicative of osteopenia. This represents a BMD change of 11.7% compared to the prior exam. This is statistically significant. The bone mineral density of the left total hip is 0.781 with a T-score of -1.8, and a Z-score of -0.6. This is indicative of osteopenia. This represents a BMD change of -1.5% compared to the prior exam. This is not statistically significant. The bone mineral density of the left femoral neck is 0.710 with a T-score of -2.4, and a Z-score of -0.9. This is indicative of osteopenia. This represents a BMD change of 6.8% compared to the prior exam. FRACTURE RISK: The FRAX index suggests a ten year probability of major osteoporotic fracture of 24.8%, and of hip fracture 5.1%. MM/XR DEXA axial skeleton IMPRESSION: Based on bone mineral density, and according to World Health Organization (WHO) criteria, the diagnosis is consistent with osteopenia. All bone density values are in grams per centimeter squared (g/cm2). Statistically, 68% of repeat scans fall within 1 SD (+/- 0.010 g/cm2 for AP spine L1-L4) and 1 SD (+/- 0.012 g/cm2 for femur total) FRAX is a trademark of the [employer]'s [place] for Metabolic Bone Disease, a World Health Organization (WHO) Collaborating Center. Electronically signed by: Ajit Chavez MD 01/17/2025 10:51 AM EDT
--- OUTSIDE RECORDS SUMMARY | 2025-01-17 11:51 | XMS_ITS | Clinical Summary ---
Author Organization [facility] Address [address] [address] Care Team Providers Care Sports Medicine Physician Name Role Phone Unavailable Primary Care Provider [...] Plan of Treatment Not on file Insurance [place] MEDICAID DENTAL [facility] [place] [id number]
== END 2025-01-17 10:20 | disposition home or self-care (01) ==
LOC: HO.MAMMO 10:19
PROVIDERS: PCP Internal Medicine; Visit Provider Internal Medicine
DX: M81.0 Age-related osteoporosis without current pathological fracture (principal)
CPT/HCPCS: 77080

== ENCOUNTER → 2025-01-17 10:30 | Outpatient (BNV) | payer OTHER, SELFPAY | PROVIDERS: PCP Internal Medicine; Visit Provider Radiology Diagnostic Radiology | DX: E28.39 Other primary ovarian failure (principal) | CPT/HCPCS: 77080 ==

== ENCOUNTER 2025-02-17 09:34 | Outpatient (REF) | payer OTHER, SELFPAY ==
[2025-02-17 14:58] LABS: Alanine Aminotransferase 23 U/L (0-31); Albumin Level 4.6 g/dL (3.5-5.0); Alkaline Phosphatase 79 U/L (39-117); Anion Gap 9 (12-20); Aspartate Amino Transferase 24 U/L (5-31); Bilirubin Total 0.5 mg/dL (0.0-1.0); Blood Urea Nitrogen 17 mg/dL (9-16); Calcium 9.8 mg/dL (8.4-10.2); Carbon Dioxide 31 mmol/L (22-29); Chloride 104 mmol/L (96-108); Cholesterol 192 mg/dL (<200); Estimated Glomerular Filt Rate > 60; Glucose Fasting 97 mg/dL (60-99); HDL Cholesterol 64 mg/dL (>40); LDL Cholesterol Calculated 105 mg/dL (<100); Potassium 4.3 mmol/L (3.3-5.1); Sodium 140 mmol/L (135-145); Triglycerides 119 mg/dL (<150)
== END 2025-02-17 09:35 | disposition home or self-care (01) ==
LOC: HO.HMGCLDS 09:34
PROVIDERS: PCP Internal Medicine; Visit Provider Internal Medicine
DX: E78.5 Hyperlipidemia, unspecified (principal)
CPT/HCPCS: 36415; 80053; 80061

== ENCOUNTER 2025-02-24 09:26 | Outpatient (AMB) | payer OTHER, SELFPAY ==
[2025-02-24 09:33] VITALS: BP 120/82; PULSE 79; RESP 16; TEMP 36.7; O2SAT 98; BMI 24.6
--- NOTE | 2025-02-24 09:33 | A.OFFPC_ITS ---
Vital Signs 02/24/25 09:33 Height 5 ft Weight 126 lb BMI 24.6 BP 120/82 Blood Pressure Location Rt brachial Position Sitting Respiration 16 Pulse 79 Pulse Source Pulse Oximeter Temp 98.1 F Temp Source Oral Pulse Oximetry (%) 98 Oxygen Delivery Method Room Air Intake Visit Reasons: PE reschedule Intake Note: Pt is here today for a PE. Allergies SEASONAL Allergy (Intermediate, Uncoded 02/24/25 09:34) Itchy Eyes Medication List - Last Reconciled 02/24/25 by Judith Mcfadden MD albuterol sulfate 90 mcg/actuation 2 puffs inhalation Q6H PRN atorvastatin 40 mg PO BEDTIME duloxetine (Cymbalta) 20 mg PO DAILY omeprazole 40 mg PO DAILY Tobacco use date assessed: 02/24/25 Dental Screening Dental Screen Date: 02/24/25 Did you have a dental visit in the last 12 months?: Yes Did you have a dental problem in the last 6 months where you did not have access to dental care?: No Was dental information given to patient?: Patient has dentist HPI PE reschedule HPI Details Pt presents for PE. PFSH Medical History (Updated 02/24/25 @ 10:25 by Judith Mcfadden MD) Osteopenia Mammogram declined Arthralgia Supraclavicular fossa fullness Anxiety Primary osteoarthritis of left knee Primary osteoarthritis of right knee Asthma Hyperlipemia Fibromyalgia Surgical History Hx of tubal ligation History of shoulder surgery Hx of appendectomy Family History Father CVD (cardiovascular disease) HTN (hypertension) Diabetes Mother HTN (hypertension) Diabetes Son No problems noted. Daughter No problems noted. 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 Cognitive needs: No Hearing needs: No Vision needs: Yes Questionnaire Thrive Questionnaire Date Thrive assessed: 11/14/24 I am a: Patient What is your living situation today?: I have a steady place to live Within the past 12 months, did the food you bought not last and you didn't have the money to get more?: I choose not to answer this question Within the past 12 months, did you worry whether your food would run out before you got money to buy more?: Never true Do you have trouble paying for medicines?: No Do you have trouble getting transportation to medical appointments?: No Do you have trouble paying your heating and electricity bill?: Yes Do you have trouble taking care of your child, family member or friend?: No Do you have trouble with day-to-day activities such as bathing, preparing meals, shopping, managing finances, etc.?: No Are you currently unemployed and looking for a job?: No Are you interested in more education?: No Please select the resources that you would like help with: None Currently or been in a relationship where the following occur: No concerns reported THRIVE Score: 1 FRED-7 AMB Questionnaire FRED-7 Date FRED - 7 assessed: 08/19/21 Source: Developed by Drs. Ajit Yung, Yanique Caballero, Sandeep Mak and colleagues, with an educational hardeep from [employer]. Review of Systems Const All systems reviewed & are unremarkable except as noted in HPI and below Reports no additional complaints Eyes Reports no additional complaints ENT Reports no additional complaints Card Reports no additional complaints Resp Reports no additional complaints GI Reports no additional complaints Reports no additional complaints Physical exam (Primary Care) Vital Signs: Last Vital Signs Temp 98.1 F 02/24/25 09:33 Pulse 79 02/24/25 09:33 Resp 16 02/24/25 09:33 BP 120/82 02/24/25 09:33 Pulse Ox 98 02/24/25 09:33 Oxygen Delivery Method Room Air 02/24/25 09:33 BMI result Body Mass Index 24.6 Tobacco/Smoking Status: Tobacco use Status Tobacco use date assessed 02/24/25 02/24/25 09:39 Patient Tobacco Use Status Never used Tobacco 02/24/25 09:39 e-Cigarette/Vaping Use Never Used 02/24/25 09:39 Thrive Assessment: Date of Thrive Assessment Date Thrive assessed 11/14/24 02/24/25 09:39 Currently or been in a relationship where the following occur: No concerns reported Const General: no acute distress HENMT Head: Yes normal to inspection Ears: hearing grossly normal bilaterally General nose exam: Normal external nose present Face and sinus: Yes normal facial exam Mouth: Normal oral and palatal mucosa present Throat: Yes posterior oropharynx normal Eyes General: appearance normal, both eyes and all related structures Neck Neck: Yes no lymphadenopathy and Yes supple Resp Effort & Inspection: normal respiratory effort Auscultation: clear to auscultation bilaterally Cardio Rhythm: regular rhythm Heart sounds: S1 normal heart sound present and S2 normal heart sound present GI Inspection: Yes normal to inspection Palpation (GI): Soft to palpation Percussion: Yes normal to percussion Auscultation: normal bowel sounds General: Yes Bimanual renal exam normal bilaterally Coding Level of Care Code Est Pt Prev Care 40-64y(71039) Diagnoses Hyperlipemia E78.5 Osteopenia M85.80 Annual physical exam Z00.00 Assessment & Plan Assessment & Plan (1) Hyperlipemia: Code(s): E78.5 - Hyperlipidemia, unspecified Category: Medical Plan: Continue statin (2) Osteopenia: Comment: DEXA 10/2020 T score -3.1, s/p Prolia 12/2020 till 2022, DEXA 01/2025 T score femoral neck -2.4, from 2022 unchanged, Code(s): M85.80 - Other specified disorders of bone density and structure, unspecified site Category: Medical Plan: Continue vitamin-D supplement and weight-bearing exercises repeat DEXA in 2 years (3) Annual physical exam: Code(s): Z00.00 - Encounter for general adult medical examination without abnormal findings Category: Medical Plan: Well-balanced diet regular physical activity discussed, she declined mammogram and Pap smear, patient will be referred to GI for colonoscopy Orders: Orders Complete Blood Count Auto Diff 1 Year E55.9 - Vitamin D deficiency, unspecified, E78.5 - Hyperlipidemia, unspecified, R73.9 - Hyperglycemia, u nspecified Vitamin D 25-OH Total 1 Year E55.9 - Vitamin D deficiency, unspecified, E78.5 - Hyperlipidemia, unspecified, R73.9 - Hyperglycemia, unspecified Comprehensive Perry. Panel Fast 1 Year E55.9 - Vitamin D deficiency, unspecified, E78.5 - Hyperlipidemia, unspecified, R73.9 - Hyperglycemia, unspecified Lipid Panel 1 Year E55.9 - Vitamin D deficiency, unspecified, E78.5 - Hyperlipidemia, unspecified, R73.9 - Hyperglycemia, unspecified TSH reflex Free T4 1 Year E55.9 - Vitamin D deficiency, unspecified, E78.5 - Hyperlipidemia, unspecified, R73.9 - Hyperglycemia, unspecified Referrals Gastroenterology Referral Z00.00 - Encounter for general adult medical examination without abnormal findings Medications: Refilled atorvastatin 40 mg PO BEDTIME 90 tabs 3RF duloxetine (Cymbalta) 20 mg PO DAILY 90 caps 3RF omeprazole 40 mg PO DAILY 90 caps 3RF
--- OUTSIDE RECORDS SUMMARY | 2025-02-24 09:51 | XMS_ITS | Clinical Summary ---
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
== END 2025-02-24 09:59 | disposition home or self-care (01) ==
LOC: HO.HMCC 09:26
PROVIDERS: PCP Internal Medicine; Visit Provider Internal Medicine
DX: E78.5 Hyperlipidemia, unspecified (principal); M85.80 Other specified disorders of bone density and structure, unspecified site; Z00.00 Encounter for general adult medical examination without abnormal findings

== ENCOUNTER → 2025-02-24 09:26 | Outpatient (BNVA) | payer OTHER, SELFPAY | PROVIDERS: PCP Internal Medicine; Visit Provider Internal Medicine | DX: Z00.00 Encounter for general adult medical examination without abnormal findings (principal); E78.5 Hyperlipidemia, unspecified; M85.80 Other specified disorders of bone density and structure, unspecified site; E55.9 Vitamin D deficiency, unspecified; R73.9 Hyperglycemia, unspecified | CPT/HCPCS: 99396 ==